=== PATIENT | female | born 1945 | race Two or more races ===

== ENCOUNTER 2024-10-29 23:54 | Inpatient (IN) | payer MEDICARE, OTHER ==
[~2024-10-29] VITALS: Ht 157.5 cm; Wt 56.2 kg
[2024-10-30] MEDS ORDERED: MORPHINE SULFATE INJ 2 MG/ML DISP.SYRIN ONE (01:05)
[2024-10-30] MEDS ORDERED: ONDANSETRON 4 MG TAB.RAPDIS ONE (01:05)
[2024-10-30] MEDS: MORPHINE SULFATE INJ 2 MG/ML DISP.SYRIN IM ONE (01:24)
[2024-10-30] MEDS: ONDANSETRON 4 MG TAB.RAPDIS PO ONE (01:24)
[2024-10-30] MEDS: LIDOCAINE 5% (PATCH) 1 EA PATCH TP SCH (04:00)
[2024-10-30] MEDS ORDERED: ACETAMINOPHEN 325 MG TABLET PO PRN (04:00)
[2024-10-30] MEDS ORDERED: MAG HYDROX/AL HYDROX/SIMETH 30 ML UDC PO PRN (04:00)
[2024-10-30] MEDS ORDERED: Z GUARD REMEDY 4 OZ OINT TP PRN (04:00)
[2024-10-30] MEDS ORDERED: MAGNESIUM HYDROXIDE 30 ML UDC PO PRN (04:00)
[2024-10-30 04:36] LABS: PLATELET COUNT (AUTO) 293 K/uL (150-450); RED BLOOD CELL COUNT(AUTO) 4.28 MIL/uL (4.0-5.2); RED CELL DISTRIBUTION WIDTH 13.7 % (11.5-15.0); WHITE BLOOD COUNT (AUTO) 7.1 K/uL (4.3-11.0)
[2024-10-30 04:45] LABS: ASPARTATE AMINOTRANSFERASE 23 U/L (15-37); CALCIUM, SERUM 7.5 mg/dL (8.5-10.1); CREATININE 0.6 mg/dL (0.6-1.3); SODIUM SERUM 154 mmol/L (136-145); TOTAL PROTEIN, SERUM 6.1 g/dL (6.4-8.2); UREA NITROGEN, BLOOD 13 mg/dL (7-18)
[2024-10-30 05:14] LABS: APPEARANCE,URINE CLEAR (CLEAR); BLOOD, URINE NEGATIVE Ery/uL (NEGATIVE); LEUKOCYTE ESTERASE ,URINE NEGATIVE (NEGATIVE); NITRITE, URINE NEGATIVE (NEGATIVE); UGLUCOSE NEGATIVE (NEGATIVE)
[2024-10-30] MEDS ORDERED: LIDOCAINE 5% (PATCH) 1 EA PATCH TP ONE (06:38)
[2024-10-30] MEDS: ONDANSETRON HCL/PF 4 MG/2 ML VIAL IVP PRN (08:31)
[2024-10-30] MEDS: MORPHINE SULFATE INJ 2 MG/ML DISP.SYRIN IV PRN (08:31)
[2024-10-30] MEDS ORDERED: DOCU250C14 PO (12:32)
[2024-10-30] MEDS ORDERED: DICL100G34 TP (12:32)
[2024-10-30] MEDS ORDERED: DONE5TAB34 PO (12:32)
[2024-10-30] MEDS ORDERED: MELO-105 PO (12:32)
[2024-10-30] MEDS ORDERED: ATOR40TA PO (12:32)
[2024-10-30] MEDS ORDERED: SERT100T PO (12:32)
[2024-10-30] MEDS ORDERED: OMEP40CA21 PO (12:32)
[2024-10-30] MEDS: ATORVASTATIN 40 MG TABLET PO SCH (19:23)
[2024-10-30 20:00] VITALS: BP 119/74; TEMP 99; O2SAT 94
[2024-10-30] MEDS: HYDROCODONE/APAP 10/325MG TABLET PO PRN (22:13)
[2024-10-31 04:00] VITALS: BP 144/73; TEMP 98.1; O2SAT 95
[2024-10-31 06:48] LABS: PLATELET COUNT (AUTO) 337 K/uL (150-450); RED BLOOD CELL COUNT(AUTO) 4.87 MIL/uL (4.0-5.2); RED CELL DISTRIBUTION WIDTH 13.8 % (11.5-15.0); WHITE BLOOD COUNT (AUTO) 8.1 K/uL (4.3-11.0)
[2024-10-31 06:54] LABS: CALCIUM, SERUM 9.5 mg/dL (8.5-10.1); CREATININE 0.8 mg/dL (0.6-1.3); PHOSPHORUS 3.5 mg/dL (2.5-4.9); SODIUM SERUM 138.0 mmol/L (136-145); UREA NITROGEN, BLOOD 14.0 mg/dL (7-18)
[2024-10-31] MEDS: DONEPEZIL 5 MG TABLET PO SCH (08:38)
[2024-10-31] MEDS: SERTRALINE HCL 50 MG TABLET PO SCH (08:39)
[2024-10-31 09:32] VITALS: BP 152/76; TEMP 98.6; O2SAT 98
[2024-10-31 15:56] VITALS: BP 157/79; TEMP 98.1; O2SAT 97
[2024-10-31 16:00] VITALS: BP 157/79; TEMP 98; O2SAT 97
[2024-10-31 20:00] VITALS: BP 150/74; TEMP 98.6; O2SAT 97
[2024-10-31 22:43] VITALS: BP 150/74; TEMP 98.6; O2SAT 97
[2024-11-01 04:00] VITALS: BP 137/70; TEMP 99; O2SAT 95
== END 2024-11-01 14:32 | disposition left against medical advice (07) | DRG 563 ==
LOC: ER 23:57 → MS IN 10-30 06:23 → MEDSG1 10-30 07:50
DX: S39.012A Strain of muscle, fascia and tendon of lower back, initial encounter (principal); E87.0 Hyperosmolality and hypernatremia; F03.A3 Unspecified dementia, mild, with mood disturbance; X50.1XXA Overexertion from prolonged static or awkward postures, initial encounter; X58.XXXA Exposure to other specified factors, initial encounter; Y92.9 Unspecified place or not applicable; K21.9 Gastro-esophageal reflux disease without esophagitis; E78.5 Hyperlipidemia, unspecified; F32.A Depression, unspecified; Z79.899 Other long term (current) drug therapy
CPT/HCPCS: 36415; 72131-TC; 80048-TC; 80053-TC; 83735-TC; 83935-TC; 84100-TC; 84300-TC; 85025-TC; 87081-TC; 97116-TC; 97530-TC; G0378; J2270; J2405; Q0162